=== PATIENT | female | born 1955 | race Caucasian/White ===

== ENCOUNTER → 2016-07-21 | Outpatient (CLI) | payer OTHER ==
[~2016-07-21] MED LIST: ACETAMINOPHEN325 M1; LOPRESSOR OR; LORTAB 5 MG/5001 TA1 PO; MULTIVITAMINS OR; VITAMINC500 OR
== END ==
LOC: RAD 04:56
DX: N64.4 Mastodynia (principal); R92.2 Inconclusive mammogram

== ENCOUNTER → 2016-11-14 | Outpatient (CLI) | payer OTHER | LOC: RAD 01:32 | DX: Z12.31 Encounter for screening mammogram for malignant neoplasm of breast (principal) ==

== ENCOUNTER → 2017-04-04 | Outpatient (CLI) | payer OTHER | LOC: MRI 10:04 | DX: M47.892 Other spondylosis, cervical region (principal) ==

== ENCOUNTER 2017-09-28 01:09 | Emergency (ER) | payer OTHER ==
[~2017-09-28] VITALS: Ht 157.5 cm; Wt 59.9 kg
--- NOTE | ~2017-09-28 | EKG ---
[place] [address] [facility] [place] [address] ELECTROCARDIOGRAM REPORT Name: [facility]ON [facility]: DEP LEENA Justin#: [id number] Admission: 09/28/17 Attend Phys: Discharge: 09/28/17 Date of : 51 Report #: [id number] THIS REPORT FOR: //name// [facility] ED Test Date: 2017-09-28 Test Time: 01:21:15 Pat Name: HARSHA MASON Department: Room: Gender: F [employer] Hel[employer]: MZOOK : 1955 Requested By: Sophie Archibald Order Number: [id number] MD: Jimmie López Measurements Intervals [place] Rate: 93 P: 62 AK: 180 QRS: 62 QRSD: 88 T: 50 QT: 354 QTc: 441 Interpretive Statements Sinus rhythm Nonspecific ST segment abnormality Compared to ECG 04/09/2013 17:42:25 No significant change was found Electronically Signed On 09-28-2017 13:27:37 CDT by Jimmie López [email or web address] <ELECTRONICALLY SIGNED> By: Jimmie López MD, [facility] 09/28/17 [id number] [id number] 012 Jimmie López MD, [facility] /EPI
[2017-09-28] MEDS ORDERED: PLAQUENIL200 MG PO (01:39)
[2017-09-28] MEDS ORDERED: FLECAINIDE ACET50 M1 PO (01:40)
[2017-09-28] MEDS ORDERED: TYLENOL325 MG PO (01:40)
[2017-09-28] MEDS ORDERED: IBUPROFEN 200200 M1 PO (01:40)
[2017-09-28 02:47] LABS: ABSOLUTE NEUTROPHILS 2.3 thou/uL (1.4-8.2); BASOPHILS 2.4 % (0.0-2.0); EOSINOPHILS 2.8 % (0.0-3.0); HEMOGLOBIN 12.9 gm/dL (12.0-15.0); LYMPHOCYTES 28.6 % (24.0-44.0); MCH 31.8 pg (26.0-34.0); MCV 93.3 fL (80.0-100.0); MONOCYTES 10.2 % (1.0-8.0); PLATELET COUNT 149 thou/uL (150-400); RBC 4.07 mil/uL (4.20-5.00); RDW 12.6 % (10.5-14.5); WBC 4.2 thou/uL (4.0-11.0)
[2017-09-28 02:54] LABS: ANION GAP 15 mmol/L (7-16); BUN 19 mg/dL (7-18); CALCIUM 9.5 mg/dL (8.5-10.1); CHLORIDE 101 mmol/L (98-107); CO2 28 mmol/L (21-32); CREATININE 0.6 mg/dL (0.6-1.0); GLUCOSE 116 mg/dL (74-106); POTASSIUM 4.1 mmol/L (3.5-5.1); SODIUM 144 mmol/L (136-145)
[2017-09-28 03:03] LABS: MAGNESIUM 2.3 mg/dL (1.8-2.4); TROPONIN-I < 0.04 ng/mL (<0.06)
[2017-09-28 04:05] VITALS: BP 129/60
== END 2017-09-28 04:06 | disposition home or self-care (01) ==
LOC: ER 01:09
PROVIDERS: Emergency Medicine
DX: I10 Essential (primary) hypertension (principal); R00.2 Palpitations; Z88.1 Allergy status to other antibiotic agents; Z88.8 Allergy status to other drugs, medicaments and biological substances

== ENCOUNTER → 2017-11-15 | Outpatient (CLI) | payer OTHER ==
[~2017-11-15] MED LIST changes: +FLECAINIDE ACET50 M1 PO; +IBUPROFEN 200200 M1 PO; +PLAQUENIL200 MG PO; +TYLENOL325 MG PO
== END ==
LOC: RAD 00:54
DX: Z12.31 Encounter for screening mammogram for malignant neoplasm of breast (principal); R92.1 Mammographic calcification found on diagnostic imaging of breast

== ENCOUNTER → 2018-09-16 | Outpatient (CLI) | payer OTHER | LOC: RAD 08:45 | DX: M47.817 Spondylosis without myelopathy or radiculopathy, lumbosacral region (principal); M41.85 Other forms of scoliosis, thoracolumbar region; Z88.8 Allergy status to other drugs, medicaments and biological substances; Z88.1 Allergy status to other antibiotic agents; Z90.49 Acquired absence of other specified parts of digestive tract ==

== ENCOUNTER → 2018-10-17 | Outpatient (CLI) | payer OTHER | LOC: NUC 08:55 | DX: M81.0 Age-related osteoporosis without current pathological fracture (principal); Z78.0 Asymptomatic menopausal state ==

== ENCOUNTER → 2018-11-19 | Outpatient (CLI) | payer OTHER | LOC: RAD 01:23 | DX: Z12.31 Encounter for screening mammogram for malignant neoplasm of breast (principal) ==

== ENCOUNTER → 2019-12-02 | Outpatient (CLI) | payer OTHER | LOC: BC 08:29 | PROVIDERS: ATTEND Family Medicine | DX: Z12.31 Encounter for screening mammogram for malignant neoplasm of breast (principal) ==

== ENCOUNTER → 2019-12-12 | Outpatient (CLI) | payer OTHER | LOC: BC 10:03 | PROVIDERS: ATTEND Family Medicine | DX: N63.20 Unspecified lump in the left breast, unspecified quadrant (principal) ==

== ENCOUNTER → 2020-02-10 | Outpatient (CLI) | payer OTHER | LOC: SJCVCIMAG 07:08 | PROVIDERS: ATTEND Internal Medicine Cardiovascular Disease | DX: I07.1 Rheumatic tricuspid insufficiency (principal); I27.20 Pulmonary hypertension, unspecified; R94.31 Abnormal electrocardiogram [ECG] [EKG] ==

== ENCOUNTER → 2020-12-09 | Outpatient (CLI) | payer OTHER | LOC: BC 09:21 | PROVIDERS: ATTEND Family Medicine | DX: Z12.31 Encounter for screening mammogram for malignant neoplasm of breast (principal) ==